=== PATIENT | male | born 1950 | race Hispanic/Latino ===

== ENCOUNTER → 2020-07-24 | Outpatient (CLI) | payer MEDICARE, OTHER ==
--- NOTE | 2020-07-24 09:36 | Diagnostic Imaging Report ---
X-ray wrist right and left. History: Chronic pain Findings: There is no acute fracture, subluxation, soft tissue swelling. 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 These are most pronounced in the intercarpal joints between the scaphoid and trapezium and especially noticeable on the right side. Other joints for example first carpometacarpal and radiocarpal joints also show advanced degenerative changes. 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 Correlation with history of diabetes and renal failure is recommended. There is presence of metallic density objects in the second metacarpal region. This could be retained metallic foreign bodies for example shrapnel. Clinical correlation is requested. 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 Signed by: Jayden Vidal MD on 07/24/2020 9:32 AM
== END ==
LOC: RAD 08:28
PROVIDERS: ATTEND Family Medicine
DX: M79.642 Pain in left hand (principal); M79.641 Pain in right hand; M25.532 Pain in left wrist; M25.531 Pain in right wrist

== ENCOUNTER → 2022-10-03 | Outpatient (CLI) | payer MEDICARE | LOC: CT 11:34 | PROVIDERS: ATTEND Internal Medicine Critical Care Medicine | DX: R06.02 Shortness of breath (principal); Z57.2 Occupational exposure to dust; K21.9 Gastro-esophageal reflux disease without esophagitis; M35.00 Sjogren syndrome, unspecified; Z87.891 Personal history of nicotine dependence | CPT/HCPCS: 71250 ==

== ENCOUNTER 2022-11-27 07:16 | Inpatient (IN) | payer MEDICARE ==
[~2022-11-27] VITALS: Ht 177.8 cm; Wt 79.4 kg
[2022-11-27] VITALS (11 sets, daily range): BP systolic 119–152; BP diastolic 42–95
[~2022-11-27 07:16] MED LIST: ASPIRIN81 MG PO; LISINOPRIL40 MG PO; METOPROLOL SUCC25 MG PO; OMEPRAZOLE40 MG PO; SIMVASTATIN40 MG PO
[2022-11-27 07:47] LABS: BASOPHILS % 0.4 % (0.0-1.0); EOSINOPHILS # (AUTO) 0.2 (0.0-0.4); EOSINOPHILS % 2.8 % (0.0-6.0); HEMATOCRIT 38.7 % (38.2-49.6); HEMOGLOBIN 13.2 g/dL (14.0-18.0); LYMPHOCYTES # (AUTO) 2.5 (1.0-3.2); LYMPHOCYTES % 45.4 % (18.0-39.1); MEAN CORPUSCULAR HEMOGLOBIN 32.1 pg (28-32); MEAN CORPUSCULAR HGB CONC 34.1 g/dL (31-35); MEAN CORPUSCULAR VOLUME 94.2 fL (81-99); MONOCYTES # (AUTO) 0.5 (0.2-0.8); MONOCYTES % 9.6 % (4.4-11.3); NEUTROPHILS # (AUTO) 2.3 (2.1-6.9); NEUTROPHILS % 41.6 % (38.7-80.0); PLATELET COUNT 167 x10e3/uL (140-360); RED BLOOD COUNT 4.11 x10e6/uL (4.3-5.7); RED CELL DISTRIBUTION WIDTH 12.6 % (11.7-14.4)
[2022-11-27 07:50] LABS: INR 1.05; PROTHROMBIN TIME 13.9 seconds (11.9-14.5)
[2022-11-27 07:51] LABS: PARTIAL THROMBOPLASTIN TIME 30.9 seconds (23.8-35.5)
[2022-11-27] MEDS ORDERED: CLOPIDOGREL BISULFATE 75 MG TAB PO ONE ×2 (08:00→08:15)
[2022-11-27] MEDS ORDERED: ASPIRIN 81 MG CHEW TAB PO ONE (08:00)
[2022-11-27] MEDS ORDERED: METOPROLOL TARTRATE 25 MG TAB PO ONE (08:00)
[2022-11-27 08:01] LABS: ALBUMIN 3.9 g/dL (3.5-5.0); ALBUMIN/GLOBULIN RATIO 1.2 (0.8-2.0); CALCIUM 9.1 mg/dL (8.4-10.2); CREATININE, SERUM 0.77 mg/dL (0.72-1.25)
[2022-11-27 08:07] LABS: CREATINE KINASE MB 3.4 ng/mL (0-5.0)
[2022-11-27] MEDS ORDERED: ENOXAPARIN INJ 80 MG/0.8 ML SYR SC ONE (08:30)
[2022-11-27] MEDS ORDERED: Morphine 2mg Syringe 2 MG/ML SYR IV PRN (08:30)
[2022-11-27] MEDS ORDERED: SODIUM CHLORIDE 0.9% 1000ML 1,000 ML IV SCH (08:30)
[2022-11-27] MEDS ORDERED: NITROGLYCERIN 0.4 MG SUBL SL PRN ×2 (08:30→14:15)
[2022-11-27] MEDS ORDERED: FAMOTIDINE 20 MG/2 ML VIAL IV SCH (08:30)
[2022-11-27] MEDS ORDERED: ONDANSETRON HCL INJ 2MG/ML 2ML 2 MG/ML VIAL IV PRN (08:30)
[2022-11-27] MEDS ORDERED: FAMOTIDINE 20 MG/2 ML VIAL IV ONE (08:53)
[2022-11-27] MEDS ORDERED: HEPARIN SOD (PORCINE) 1000 UNIT/ML 30ML ONE (12:15)
[2022-11-27] MEDS ORDERED: LIDOCAINE HCL 2% LOCAL 20 ML VIAL ONE (12:15)
[2022-11-27] MEDS ORDERED: HEPARIN SOD/SOD CHLORIDE 2,000 ML ONE (12:16)
[2022-11-27] MEDS ORDERED: NITROGLYCERIN/D5W 200 MCG/ML 250 ML ONE (12:17)
[2022-11-27] MEDS ORDERED: VERAPAMIL HCL 2.5 MG/ML 2 ML VIAL ONE (12:17)
[2022-11-27] MEDS ORDERED: SODIUM CHLORIDE 0.9% 1000ML 1,000 ML ONE (12:17)
[2022-11-27] MEDS ORDERED: MIDAZOLAM HCL 2 MG/2 ML VIAL ONE (12:17)
[2022-11-27] MEDS ORDERED: IOPAMIDOL 370 MG/ML 100 ML INFUS..BTL INJ ONE ×2 (12:17→13:45)
[2022-11-27] MEDS ORDERED: FENTANYL CITRATE/PF 100MCG/2 ML INJ ONE (12:18)
[2022-11-27] MEDS ORDERED: SODIUM CHLORIDE 0.9% 500ML 500 ML ONE (13:45)
[2022-11-27] MEDS ORDERED: HEPARIN 25,000 UNIT/D5W 250ML 900 UNIT in DEXTROSE 5% 250ML 250 ML IV SCH ×2 (14:45→15:30)
[2022-11-27] MEDS ORDERED: DEXTROSE 5% IV SCH ×2 (15:00→15:30)
[2022-11-27] MEDS ORDERED: HEPARIN IV SCH ×2 (15:00→15:30)
[2022-11-27] MEDS ORDERED: [UNRECOGNIZED DRUG - OTHER] IV SCH ×2 (15:00→15:30)
[2022-11-27] MEDS ORDERED: HEPARIN SOD (PORCINE) 5,000 UNIT/ML VIAL IV ONE (15:30)
[2022-11-27 17:00] LABS: INR 1.11; PROTHROMBIN TIME 14.5 seconds (11.9-14.5)
[2022-11-27] MEDS ORDERED: METOPROLOL TARTRATE 25 MG TAB PO SCH (17:00)
[2022-11-27 17:02] LABS: PARTIAL THROMBOPLASTIN TIME 76.8 seconds (23.8-35.5)
[2022-11-27] MEDS ORDERED: HEPARIN 25,000 UNIT DRIP IV ONE (17:06)
[2022-11-27] MEDS ORDERED: ATORVASTATIN 40 MG TAB PO SCH (21:00)
[2022-11-28] MEDS ORDERED: ASPIRIN 81 MG CHEW TAB PO SCH (09:00)
== END 2022-11-27 18:00 | disposition short-term general hospital (02) | DRG 272 ==
LOC: ER 07:21 → ERHOLD 08:32
PROVIDERS: ADMIT Internal Medicine; ATTEND Internal Medicine
PROC: 4A023N7 Measurement of Cardiac Sampling and Pressure, Left Heart, Percutaneous Approach (ICD-10-PCS; principal; 2022-11-27)
PROC: 5A02210 Assistance with Cardiac Output using Balloon Pump, Continuous (ICD-10-PCS; 2022-11-27)
PROC: B2111ZZ Fluoroscopy of Multiple Coronary Arteries using Low Osmolar Contrast (ICD-10-PCS; 2022-11-27)
DX: I21.4 Non-ST elevation (NSTEMI) myocardial infarction (principal); K21.9 Gastro-esophageal reflux disease without esophagitis; E78.5 Hyperlipidemia, unspecified; I10 Essential (primary) hypertension; I45.10 Unspecified right bundle-branch block; I24.9 Acute ischemic heart disease, unspecified; M35.00 Sjogren syndrome, unspecified; Z20.822 Contact with and (suspected) exposure to COVID-19; Z87.891 Personal history of nicotine dependence
CPT/HCPCS: 0223U; 33970; 36415; 71045; 80053; 82550; 82553; 83735; 83880; 84484; 85025; 85610; 85730; 93005; 93306; 93454; 99152; 99153; 99284; C1769; C1887; C1894; J1644; J1650; J2001; J2250; J7030; J7040; Q9967